=== PATIENT | female | born 1995 | race African-American/Black ===

== ENCOUNTER 2024-12-30 15:11 | Emergency (ER) | payer MEDICAID, OTHER ==
[~2024-12-30] VITALS: Ht 170.2 cm; Wt 80.0 kg
[2024-12-30 15:18] VITALS: O2SAT 97
[2024-12-30] MEDS ORDERED: RALT400T MT (16:17)
[2024-12-30] MEDS ORDERED: EMTR1TAB20 MT (16:17)
[2024-12-30 16:30] VITALS: BP 121/66; PULSE 89; RESP 15; TEMP 36.8; O2SAT 99
[2024-12-30 17:46] LABS: BASOPHILS % 0.7 % (0.0-2.0); EOSINOPHILS % 5.6 % (0.0-5.0); HEMATOCRIT. 36.3 % (36.0-48.0); HEMOGLOBIN. 11.9 g/dL (12.0-16.0); LYMPHOCYTES % 33.2 % (20.0-50.0); MEAN PLATELET VOLUME 8.4 fl (7.4-10.4); MONOCYTES % 10.7 % (2.0-8.0); NEUTROPHILS % 49.8 % (40.0-76.0); PLATELET 234 x1000/uL (130-400); RED BLOOD CELL COUNT 4.20 mill/uL (4.2-5.4); RED CELL DISTRIBUTION WIDTH 13.3 % (11.6-14.6)
[2024-12-30 17:53] LABS: HCG SCREEN NEGATIVE
[2024-12-30 17:55] LABS: CREATININE 1.1 mg/dL (0.6-1.0); UREA NITROGEN BLOOD 10 mg/dL (9-23)
[2024-12-30 17:57] LABS: ASPARTATE AMINOTRANSFERASE 16 IU/L (<34); BILIRUBIN TOTAL 0.3 mg/dL (0.1-1.0); PROTEIN TOTAL 7.2 g/dL (6.0-8.3)
[2024-12-30 18:33] LABS: HEPATITIS B CORE AB IGM NEGATIVE (Negative)
[2024-12-30 18:34] LABS: HEPATITIS C AB NON REACTIVE (Neg) (Negative)
== END 2024-12-30 16:55 | disposition home or self-care (01) ==
LOC: ER 15:11
DX: S61.432A Puncture wound without foreign body of left hand, initial encounter (principal); Z77.21 Contact with and (suspected) exposure to potentially hazardous body fluids; Z79.624 Long term (current) use of inhibitors of nucleotide synthesis; J45.909 Unspecified asthma, uncomplicated; Z98.890 Other specified postprocedural states; W46.0XXA Contact with hypodermic needle, initial encounter; Y93.89 Activity, other specified; Y92.89 Other specified places as the place of occurrence of the external cause; Y99.0 Civilian activity done for income or pay
CPT/HCPCS: 36415; 80053; 84703; 85025; 86705; 86706; 87340; 99283